=== PATIENT | male | born 1995 | race Caucasian/White ===

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

== ENCOUNTER 2017-07-07 10:25 | Emergency (ER) | payer BC ==
[2017-07-07] MEDS ORDERED: DEXAMETHASONE 10 MG/ML VIAL IVP ONE (11:13)
[2017-07-07] MEDS ORDERED: NS 1,000 ML IV ONE (11:13)
--- NOTE | 2017-07-07 11:19 | EDPHY ---
H & P Smoking Status: Never smoked Time Seen by Provider: 07/07/17 10:40 HPI/ROS: CHIEF COMPLAINT: Sore throat, fever, myalgias HISTORY OF PRESENT ILLNESS: 22-year-old male presents to the emergency department by private vehicle with ongoing sore throat, fever as high as 102 degrees and generalized myalgias. Patient was diagnosed with strep pharyngitis on Tuesday, 4 days ago. He was initially taking penicillin for 48 hr without relief and then was changed to Augmentin. He has been taking the Augmentin for the last 48 hr and still feels fevers, chills and still complaining of sore throat. He denies dysphagia. Denies headache. No rash. No cough, rhinorrhea or nasal congestion. No known ill contacts. The patient has a history of frequent strep infections, stating "I have had strep 12 times in the last 2 years". REVIEW OF SYSTEMS: Constitutional: Fever, chills Eyes: No double or blurry vision. ENT: sore throat. Respiratory: No cough, no shortness of breath. Cardiac: No chest pain. Gastrointestinal: No abdominal pain, vomiting or diarrhea. Genitourinary: No dysuria. Musculoskeletal: No neck or back pain. Skin: No rashes. Neurological: No headache. (Doreen Nina) Past Medical/Surgical History: Frequent strep infections (Doreen Nina) Social History: [employer] student from [place] (Doreen Nina) Physical Exam: General Appearance: Alert, no distress. 37.5 temperature, heart rate 105, nontoxic-appearing. Eyes: Pupils equal and round. Extraocular motions are all intact. ENT: Mouth: Mucous membranes moist. Posterior pharyngeal injection noted. 2 + tonsils. No exudate. No uvular shift. No trismus. No evidence of peritonsillar abscess. Anterior cervical lymphadenopathy palpated. No posterior cervical lymphadenopathy. Respiratory: No wheezing, rhonchi, or rales, lungs are clear to auscultation. Cardiovascular: Regular rate and rhythm. Gastrointestinal: Abdomen is soft and nontender, no masses, no rebound or guarding, bowel sounds normal. Neurological: Alert and oriented x 3, cranial nerves II through XII grossly intact Skin: Warm and dry, no rashes. Musculoskeletal: Nontender to palpate along the cervical, thoracic or lumbar spine. Neck is supple. No nuchal rigidity. Extremities: Full range of motion and no peripheral edema. Psychiatric: Patient is oriented X 3, there is no agitation. (Doreen Nina) Constitutional: Initial Vital Signs Temperature (C) 37.5 C 07/07/17 10:27 Heart Rate 105 H 07/07/17 10:27 Respiratory Rate 18 07/07/17 10:27 Blood Pressure 109/68 07/07/17 10:27 O2 Sat (%) 94 07/07/17 10:27 O2 Delivery Mode Room Air Allergies/Adverse Reactions: No Known Allergies Allergy (Verified 07/07/17 10:31) Home Medications: Medication Instructions Recorded Adderall 10 MG (*) 11/21/16 Amoxicillin/Potassium Clav 1 each PO 07/07/17 [Amox-Clav 500-125 mg Tablet] Medical Decision Making ED Course/Re-evaluation: 22-year-old male presents to the emergency department with ongoing fever and history of refill in strep pharyngitis. Laboratory studies reveal white blood cell count 3.7. Chemistries are unremarkable. Patient was treated with IV normal saline, IV Decadron IV Toradol. He was feeling much better. He is comfortable being discharged home. He will continue antibiotics as prescribed and follow up with ENT back home in [place] where he is flying today. (Doreen Nina) Differential Diagnosis: Including but not limited to strep pharyngitis, mononucleosis, viral syndrome, peritonsillar abscess, sepsis (Doreen Nina) Other Provider: PHYSICIAN DOCUMENTATION: The patient was evaluated and managed by the Physician Furnace Roaster and myself. I have reviewed the chart and agree with the findings and plan of care as documented. In addition, I examined the patient myself at 1225. History confirmed as sore throat since this past Tuesday multiple episodes of previous strep. Physical findings as follows: No trismus, uvula midline, normal voice, no drooling or stridor, no meningeal signs. Discussed with patient and father, ENT follow-up recommended. Advise continue with fluids and current antibiotic therapy, safe to travel, stable for discharge from the emergency department. Floor the mouth is soft, doubt deep space neck infection. I am the secondary supervising physician. (Garrett Lamas) - Data Points Laboratory Results: Laboratory Results 07/07/17 11:25 07/07/17 11:25 07/07/1718 07/07/17 11:25 11:25 11:25 WBC 3.64 10^3/uL L 10^3/uL (3.80-9.50) RBC 4.94 10^6/uL 10^6/uL (4.40-6.38) Hgb 15.3 g/dL g/dL (13.7-17.5) Hct 42.2 % % (40.0-51.0) MCV 85.4 fL fL (81.5-99.8) MCH 31.0 pg pg (27.9-34.1) MCHC 36.3 g/dL g/dL (32.4-36.7) RDW 12.2 % % (11.5-15.2) Plt Count 122 10^3/uL L 10^3/uL (150-400) MPV 9.8 fL fL (8.7-11.7) Neut % (Auto) Not Reported Lymph % (Auto) Not Reported Starr % (Auto) Not Reported Eos % (Auto) Not Reported Baso % (Auto) Not Reported Nucleat RBC Rel Count Not Reported Absolute Neuts (auto) Not Reported Absolute Lymphs (auto) Not Reported Absolute Monos (auto) Not Reported Absolute Eos (auto) Not Reported Absolute Basos (auto) Not Reported Absolute Nucleated RBC Not Reported Immature Gran % Not Reported Seg Neutrophils % 63.0 % % Band Neutrophils % 6.0 % % Lymphocytes % 16.0 % % Monocytes % 15.0 % % Eosinophils % 0 % % Basophils % 0 % % Metamyelocytes % 0 % % Myelocytes % 0 % % Promyelocytes % 0 % % Blast Cells % 0 % % Immature Gran # Not Reported Absolute Seg Neuts 2.29 10^/uL 10^/uL (1.70-6.50) Absolute Band Neuts 0.22 10^3/uL 10^3/uL (0.00-0.70) Absolute Lymphocytes 0.58 10^3/uL L 10^3/uL (1.00-3.00) Absolute Monocytes 0.55 10^3/uL 10^3/uL (0.30-0.80) Absolute Eosinophils 0.00 10^3/uL L 10^3/uL (0.03-0.40) Absolute Basophils 0.00 10^3/uL L 10^3/uL (0.02-0.10) Absolute Metamyelocyte 0.00 10^3/mL 10^3/mL (0.00-0.00) Absolute Myelocytes 0.00 10^3/mL 10^3/mL (0.00-0.00) Absolute Promyelocytes 0.00 10^3/uL 10^3/uL (0.00-0.00) Absolute Plasma Cells 0.00 10^3/uL 10^3/uL (0.00-0.00) Atypical Lymphocytes 1+ H Absolute Blast Cells 0.00 10^3/uL 10^3/uL (0.00-0.00) Plasma Cells % 0 % % Platelet Estimate DECREASED L (ADEQ) Sodium 134 mEq/L L mEq/L (135-145) Potassium 3.7 mEq/L mEq/L (3.3-5.0) Chloride 99 mEq/L mEq/L (97-110) Carbon Dioxide 23 mEq/l mEq/l (22-31) Anion Gap 12 mEq/L mEq/L (8-16) BUN 17 mg/dL mg/dL (7-23) Creatinine 0.8 mg/dL mg/dL (0.7-1.3) Estimated GFR > 60 Glucose 84 mg/dL mg/dL (70-100) Calcium 8.5 mg/dL mg/dL (8.5-10.4) Monoscreen NEGATIVE (NEGATIVE) Medications Given: Discontinued Medications Dexamethasone (Decadron Injection) 10 mg IVP EDNOW ONE Stop: 07/07/17 11:14 Last Admin: 07/07/17 11:28 Dose: 10 mg Sodium Chloride (Ns) 1,000 mls @ 0 mls/hr IV ONCE ONE PRN Reason: Wide Open Stop: 07/07/17 11:14 Last Admin: 07/07/17 11:28 Dose: 1,000 mls Ketorolac Tromethamine (Toradol) 30 mg IVP EDNOW ONE Stop: 07/07/17 12:16 Last Admin: 07/07/17 12:30 Dose: 30 mg Departure - Departure Disposition: Home, Routine, Self-Care Clinical Impression: Acute pharyngitis Qualifiers: Pharyngitis/tonsillitis etiology: streptococcus Qualified Code(s): J02.0 - Streptococcal pharyngitis Condition: Good Instructions: Pharyngitis (ED) Additional Instructions: Adult Pain & Fever Control: We recommend Acetaminophen (Tylenol) and Ibuprofen (Motrin,Advil) for pain and fever control. When fever is high or pain severe, both drugs can be used at the same time, but at different intervals. Please note the time differences. Your dose is: Acetaminophen 1000mg every 4 to 6 hours Ibuprofen 600mg every 8 hours with food Note: do not take Acetaminophen with Hydrocodone (Vicodin, Lortab) or Oycodone (Percocet). These medications also contain Acetaminophen. No more than 3000mg of Acetaminophen should be taken in 24 hours (for an adult). Referrals: Miguel A Lindquist MD [Medical Doctor] - 1 day, if not improved
[2017-07-07 11:43] LABS: PLATELET COUNT 122 10^3/uL (150-400)
[2017-07-07] MEDS ORDERED: KETOROLAC 30 MG/1 ML SDV IVP ONE (12:15)
[2017-07-07 12:58] VITALS: BP 123/69
== END 2017-07-07 12:57 | disposition home or self-care (01) ==
DX: J02.0 Streptococcal pharyngitis (principal)
CPT/HCPCS: 96374; J1100; J1885

== ENCOUNTER 2017-12-13 21:15 | Emergency (ER) | payer BC ==
--- NOTE | 2017-12-13 21:49 | EDPHY ---
H & P Stated Complaint: dyspnea and chills. Time Seen by Provider: 12/13/17 21:48 HPI/ROS: HPI CHIEF COMPLAINT: [ ] HISTORY OF PRESENT ILLNESS: [Need 4: Location, Duration, Severity, Quality, Context, Timing Modifying Factors, Associated S&S] Past Medical History: Past Surgical History: Social History: Family History: ROS REVIEW OF SYSTEMS: 10 Systems were reviewed and negative with the exception of the elements mentioned in the history of present illness. Exam Constitutional triage nursing summary reviewed, vital signs reviewed, awake/ alert. Eyes normal conjunctivae and sclera, EOMI, PERRLA. HENT normal inspection, atraumatic, moist mucus membranes, no epistaxis, neck supple/ no meningismus, no raccoon eyes. Respiratory clear to auscultation bilaterally, normal breath sounds, no respiratory distress, no wheezing. Cardiovascular rate normal, regular rhythm, no murmur, no edema, distal pulses normal. Gastrointestinal soft, non-tender, no rebound, no guarding, normal bowel sounds, no distension, no pulsatile mass. Genitourinary no CVA tenderness. Musculoskeletal no midline vertebral tenderness, full range of motion, no calf swelling, no tenderness of extremities, no meningismus, good pulses, neurovascularly intact. Skin pink, warm, & dry, no rash, skin atraumatic. Neurologic awake, alert and oriented x 3, AAOx3, moves all 4 extremities equally, motor intact, sensory intact, CN II-XII intact, normal cerebellar, normal vision, normal speech. Psychiatric normal mood/affect. Heme/Lymph/Immune no lymphadenopathy. Differential Diagnosis: Medical Decision Making: Re-evaluation: Source: Patient - Personal History Current Tetanus/Diphtheria Vaccine: Yes Current Tetanus Diphtheria and Acellular Pertussis (TDAP): Yes - Medical/Surgical History Hx Asthma: No Hx Chronic Respiratory Disease: No Hx Diabetes: No Hx Cardiac Disease: No Hx Renal Disease: No Hx Cirrhosis: No Hx Alcoholism: No Hx HIV/AIDS: No Hx Splenectomy or Spleen Trauma: No Other PMH: chiari syndrome/craniosynestosis/l foot surgery - Social History Smoking Status: Never smoked Constitutional: Initial Vital Signs Temperature (C) 37.8 C 12/13/17 21:22 Heart Rate 98 12/13/17 21:22 Respiratory Rate 16 12/13/17 21:22 Blood Pressure 117/65 12/13/17 21:22 O2 Sat (%) 97 12/13/17 21:22 O2 Delivery Mode Room Air Allergies/Adverse Reactions: No Known Allergies Allergy (Verified 07/07/17 10:31) Home Medications: Medication Instructions Recorded Adderall 10 MG (*) 11/21/16 Departure - Departure Referrals: NONE *PRIMARY CARE P,. [Primary Care Provider] - As per Instructions
--- NOTE | 2017-12-13 22:06 | CPEKG ---
Test Reason : OPEN Blood Pressure : / mmHG Vent. Rate : 076 BPM Atrial Rate : 076 BPM P-R Int : 109 ms QRS Dur : 103 ms QT Int : 367 ms P-R-T Axes : 027 122 049 degrees QTc Int : 413 ms Sinus rhythm Atrial premature complexes Short ME interval Right axis deviation Confirmed by Guanako Murphy ([id number]) on 12/13/2017 10:05:39 PM Referred By: Confirmed By:Guanako Murphy
--- NOTE | 2017-12-13 22:08 | EDPHY ---
H & P Stated Complaint: dyspnea and chills. Time Seen by Provider: 12/13/17 21:48 HPI/ROS: CHIEF COMPLAINT: Chest pain, chills HISTORY OF PRESENT ILLNESS: The patient is a healthy 22-year-old man who comes to the emergency department complaining of chills and chest discomfort that began this afternoon. Complains of mild shortness of breath. No cough. He may have been febrile but took Advil and his symptoms improved. No history of cardiac or pulmonary disease. No sore throat. No sinus congestion. No headache or neck pain. No rash. No nausea vomiting or diarrhea. He did not have a flu vaccine. No recent travel. No leg pain or swelling. No trauma. Severity: Moderate Modifying factors: None REVIEW OF SYSTEMS: Constitutional: denies: chills, fever, recent illness, recent injury EENTM: denies: blurred vision, double vision, nose congestion Respiratory: See HPI Cardiac: See HPI denies: irregular heart rate, lightheadedness, palpitations Gastrointestinal/Abdominal: denies: abdominal pain, diarrhea, nausea, vomiting, blood streaked stools Genitourinary: denies: dysuria, frequency, hematuria, pain Musculoskeletal: denies: joint pain, muscle pain Skin: denies: lesions, rash, jaundice, bruising Neurological: denies: headache, numbness, paresthesia, tingling, dizziness, weakness Hematologic/Lymphatic: denies: blood clots, easy bleeding, easy bruising Immunologic/allergic: denies: HIV/AIDS, transplant 10 systems reviewed and negative except as noted EXAM: GENERAL: Well-appearing, well-nourished and in no acute distress. HEAD: Atraumatic, normocephalic. EYES: Pupils equal round and reactive to light, extraocular movements intact, sclera anicteric, conjunctiva are normal. ENT: TMs normal, nares patent, oropharynx clear without exudates. Moist mucous membranes. NECK: Normal range of motion, supple without lymphadenopathy or JVD. LUNGS: Breath sounds clear to auscultation bilaterally and equal. No wheezes rales or rhonchi. HEART: Regular rate and rhythm without murmurs, rubs or gallops. ABDOMEN: Soft, nontender, normoactive bowel sounds. No guarding, no rebound. No masses appreciated. BACK: No CVA tenderness, no spinal tenderness, step-offs or deformities EXTREMITIES: Normal range of motion, no pitting or edema. No clubbing or cyanosis. NEUROLOGICAL: Cranial nerves II through XII grossly intact. Normal speech, normal gait. 5/5 strength, normal movement in all extremities, normal sensation , normal reflexes PSYCH: Normal mood, normal affect. SKIN: Warm, dry, normal turgor, no visible rashes or lesions. Source: Patient - Personal History Current Tetanus/Diphtheria Vaccine: Yes Current Tetanus Diphtheria and Acellular Pertussis (TDAP): Yes - Medical/Surgical History Hx Asthma: No Hx Chronic Respiratory Disease: No Hx Diabetes: No Hx Cardiac Disease: No Hx Renal Disease: No Hx Cirrhosis: No Hx Alcoholism: No Hx HIV/AIDS: No Hx Splenectomy or Spleen Trauma: No Other PMH: chiari syndrome/craniosynestosis/l foot surgery - Family History Significant Family History: No pertinent family hx - Social History Smoking Status: Never smoked Alcohol Use: Sober Drug Use: None Constitutional: Initial Vital Signs Temperature (C) 37.8 C 12/13/17 21:22 Heart Rate 98 12/13/17 21:22 Respiratory Rate 16 12/13/17 21:22 Blood Pressure 117/65 12/13/17 21:22 O2 Sat (%) 97 12/13/17 21:22 O2 Delivery Mode Room Air Allergies/Adverse Reactions: No Known Allergies Allergy (Verified 07/07/17 10:31) Home Medications: Medication Instructions Recorded Adderall 10 MG (*) 11/21/16 Medical Decision Making - Diagnostics EKG Interpretation: An EKG obtained and was read and documented in trace view. Please see trace view for full reading and report. Sinus rhythm with premature atrial contraction no acute ischemic changes or signs of pericarditis. Imaging: Discussed imaging studies w/ on call Radiologist ED Course/Re-evaluation: Patient is well appearing. He has symptoms consistent with early viral infection. Low risk for cardiac or significant pulmonary disease, PERC score is negative. 10:45 p.m. I discussed the patient's x-ray, EKG and flu swab. He feels reassured. Suspect that this is a viral bronchitis. We discussed conservative management. We discussed indications for returning. He feels comfortable with this plan and is eager to go home. Differential Diagnosis: Partial list of the Differential diagnosis considered include but were not limited to; bronchitis, upper respiratory tract infection and although unlikely based on the history and physical exam, I also considered PE, acute coronary disease, dissection, pneumothorax, pneumonia. I discussed these differential diagnoses and the plan with the patient as well as the usual and expected course. The patient understands that the diagnosis is provisional and that in medicine we are not always correct and that further workup is often warranted. Usual and customary warnings were given. All of the patient's questions were answered. The patient was instructed to return to the emergency department should the symptoms at all worsen or return, otherwise to followup with the physician as we discussed. Departure - Departure Disposition: Home, Routine, Self-Care Clinical Impression: Acute bronchitis Qualifiers: Bronchitis organism: unspecified organism Qualified Code(s): J20.9 - Acute bronchitis, unspecified Condition: Fair Instructions: Acute Bronchitis (ED) Referrals: NONE *PRIMARY CARE P,. [Primary Care Provider] - As per Instructions Maite Harvey MD [Medical Doctor] - 2-3 days, if not improved
[2017-12-13 22:50] VITALS: BP 120/70
== END 2017-12-13 22:52 | disposition home or self-care (01) ==
DX: J20.9 Acute bronchitis, unspecified (principal)